=== PATIENT | female | born 1945 | race Caucasian/White ===

== ENCOUNTER 2022-05-04 10:30 | Outpatient (RCR) | payer MEDICARE, SELFPAY ==
--- NOTE | 2022-04-14 12:47 | PT.OPE ---
PT [place] [facility] PT [facility] Out[facility] Eval Start: 04/13/22 15:34 Freq: Status: Active Protocol: Document 04/13/22 16:21 LSL (Rec: 04/13/22 17:30 LSL [id number]) E-signed By Alysha Camacho PT Physical Therapy Outpatient Evaluation Insurance Information Insurance Name Medicare B,[facility] Insurance Information/Comments Medicare advantage Medical Diagnosis dorsalgia Treating Diagnosis pain, weakness, impaired ROM, impaired mobility Referring MD [facility] Subjective Subjective Pt began having pain a couple weeks ago without any injury, but could barely get out bed. I have been taking the muscle relaxers and pain pills she gave me last and it doesn't feel like they are helping. I am alternating between heat and ice depending on which one feels better at the time. Pt. c/o constant throbbing in her LB and it began radiating into my butt over the weekend. If I lay flat on my back in bed it feels pretty good but I have had to sleep in the recliner a couple nights, but the past couple days it is almost too soft and it feels better to be in a straight back chair. Standing up from sitting, bending forward increase her pain. Walking is a little slower but it doesn't make it worse. Once I get going into it, it almost feels better. 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 Pain Comments 08/14 best, 03/16 worst Date of Last Physician Visit 04/10/22 Current Work Status Retired Precautions Weight Bearing Status Full Weight Bearing Therapy Limitations/Systems Review Not Limited Objective Range of Motion AROM - flexion 50% with UE assistance, extension WNL with sharp pain, RLF 50% with pain , LLF 75% PROM - Strength LE - R HS 4-/5, B hip extension 3/5 with pain in LB R>L Trunk - upper abdominals can't due to pain, lower abdominals 2/5, bridge unable due to pain Swelling mild about L-S junction Palpation B lumbar paraspinals, multifidus, R glut med tight and tender, B piriformis, L3, L4 Posture Unremarkable Sensation/Reflexes Reflexes - B patellar intact, B achilles absent SLR - WNL with slight LBP on R SLR in sitting Other/Pertinent Objective Joint Play - PAs on L3, L4 and UPA L3, L4 all very tender, L5 UPA tender and restricted Assessment Assessment/Impression Pt. is a 76 y/o female with insidious onset of LBP. She appears to have symptoms of degenerative changes creating L5 nerve impingement. She is currently guarding movement without significant radicular symptoms, however she is very tight in the R glut med and has weakness in the R hamstrings. She will benefit from PT to educate patient in safe movement, and therex and NM re-ed to begin supporting and moving her spine again with manual therapy and modalities to assist in pain management. Primary Functional Limitations transitioning sit to/from stand, bending, lifting, bed mobility Plan of Care Rehabilitation Potential Excellent Physical Therapy Goals SHORT TERM GOALS: (2-3 weeks) 1. Pt. able to smoothly transition from one position to another with pain less than 3/10. 2. Pt. using proper lifting mechanics to decrease stress to her spine during this acute phase. 3. Pt. able to sleep in bed with pain less than 3/10. 4. Pt. able to don/doff socks and shoes, pants with pain less than 3/10. [facility]FP GOALS: (4+ weeks) 1. Pt. able to lift 10 pounds to get things in and out of oven. 2. Pt. able to perform design eng with pain less than 3/10. 3. Pt. able to sit on any surface with pain less than 3/ 10. 4. Pt. 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 Coordination/Communication With Referral Source Treatment Plan/Direct Interventions Electrical Stimulation,Heat, Ice/Cold/Vasopneumatic,Joint Mobilization,Manual Therapy, Neuromuscular Re-ed,Self-Care/ Home Management,Therapeutic Exercises Frequency/Duration 2x/week 4 weeks Patient Will Be Discharged From Therapy Completion of LTG(s),Skills Plateau,Independent w/HEP, Independently Progressing Evaluation Billing Untimed Code Treatment Minutes 25 Complexity Moderate Certification Information Initial Certification Date 04/13/22 Ending Certification Date 07/10/22 Provider Signature Shows Agreement With POC & Medical Necessity Physician Signature & Date Requested Please Sign/Date Here Physician Comment/Change : Physician NPI Number #
== END 2022-06-11 15:41 | disposition home or self-care (01) ==
PROVIDERS: PCP Physician Assistant Medical; Visit Provider Physician Assistant Medical
DX: M54.9 Dorsalgia, unspecified (principal); Z51.89 Encounter for other specified aftercare
CPT/HCPCS: 97110; 97140; 97162

== ENCOUNTER 2022-05-13 12:45 | Outpatient (CLI) | payer MEDICARE, SELFPAY ==
--- NOTE | 2022-05-13 13:00 | CRLHL7_ITS ---
For Patients: As a result of the Cures Act, medical imaging exams and procedure reports are released immediately into your electronic medical record. You may view this report before your referring provider. If you have questions, please contact your health care provider. BILATERAL SCREENING MAMMOGRAM WITH COMPUTER-AIDED DETECTION AND TOMOSYNTHESIS TECHNIQUE: CC and MLO views were obtained. These mammographic images have been obtained using full-field digital technique. These mammographic images were interpreted with the benefit of computer-aided detection. Breast Tomosynthesis was used in this interpretation. COMPARISON FILM: 09/13/17, 07/06/16, 03/21/15. FINDINGS: There are scattered areas of fibroglandular density IMPRESSION: There is no radiographic evidence for malignancy. ASSESSMENT: BI-RADS Category 1: Negative RECOMMENDATION: Routine screening mammogram in 1 year. A lay language report of this examination will be provided to the patient. Bartolome Castellanos M.D. Diagnostic Radiologist [email or web address] PHILLIP/lo be/Dictated by: Bartolome Castellanos MD @ 05/14/2022 9:48:00 AM (Electronically Signed)
--- NOTE | 2022-05-13 13:30 | CRLHL7_ITS ---
For Patients: As a result of the Century Cures Act, medical imaging exams and procedure reports are released immediately into your electronic medical record. You may view this report before your referring provider. If you have questions, please contact your health care provider. DXA BONE MINERAL DENSITY STUDY Current height (in): 61.0. Weight (lb): 160.0. Menopause age: 56. Ethnicity: White. Reason for exam: Postmenopausal. Screening. 1. Have you had a previous hip or vertebral fracture? No. 2. Have you had any fractures during your adult life which did not result from significant trauma (e.g., auto accident)? No. 3. Did either of your parents have a hip fracture? No. 4. Do you smoke? No. 5. Have you ever taken Glucocorticoids? No. 6. Do you have rheumatoid arthritis? No. 7. Do you have secondary osteoporosis? No. 8. Do you drink 3 or more alcoholic drinks per day? No. 9. Are you being treated for osteoporosis? No. 10. Have you ever taken any of the following medications: Actonel, Evista, Fosamax, Miacalcin, Reclast, Boniva, Forteo, HRT (i.e. estrogen/hormone therapy), Protelos, Prolia, Vitamin D, Calcium, other ??? please specify. ANSWER: Yes, calcium, vitamin D. 11. Do you have any of the following medical conditions: Anorexia or bulimia, asthma or emphysema, end stage renal disease, hyperparathyroidism, any seizure disorders, cancer, inflammatory bowel diseases, hysterectomy, other ??? please specify. ANSWER: No. 12. What was your maximum height (inches)? 61. 13. Do you perform weight bearing exercise regularly? No. 14. Do you regularly consume dairy products? Yes. 15. Do you drink caffeinated beverages? Yes. If female: 16. At what age did your period start? 13. 17. Are you premenopausal? No. 18. How many full term pregnancies have you had? 2. 19. Have you ever missed your period for more than 6 months in a row (not including or menopause)? No. TECHNIQUE: Bone mineral density study was performed using the [employer]. FINDINGS: The results of the study expressed as bone mineral density (BMD) are as follows: Lumbar spine L1 to L4: BMD: 1.034 g/cm2. T-score: -0.1. Z-score: 2.3. Neck Left: BMD: 0.660 g/cm2. T-score: -1.7. Z-score: 0.4. Right: BMD: 0.680 g/cm2. T-score: -1.5. Z-score: 0.6. Total Left: BMD: 0.761 g/cm2. T-score: -1.5. Z-score: 0.3. Right: BMD: 0.872 g/cm2. T-score: -0.6. Z-score: 1.2. IMPRESSION: Osteopenia. *Comparison exams done prior to 11/2019 were performed on different unit, [employer]. COMPARISON: Compared with scan of 11/30/2019, the bone mineral density has increased by 6.5 percent at the spine and increased by 6.5 percent at the hip. FRAX 10-year Fracture Risk Major Osteoporotic Fracture: 12 percent Hip Fracture: 2.6 percent Reported Risk Factors: [place] () Neck BMD = 0.660, BMI = 30.2 Bartolome Castellanos M.D. Diagnostic Radiologist [email or web address] Transcribed: 11:02 am DW/Dictated by: Bartolome Castellanos MD @ 05/14/2022 10:37:00 AM (Electronically Signed)
== END 2022-05-13 12:46 | disposition home or self-care (01) ==
PROVIDERS: PCP Physician Assistant Medical; Visit Provider Physician Assistant Medical
DX: Z12.31 Encounter for screening mammogram for malignant neoplasm of breast (principal); Z13.820 Encounter for screening for osteoporosis; M85.89 Other specified disorders of bone density and structure, multiple sites; Z78.0 Asymptomatic menopausal state
CPT/HCPCS: 77063; 77067; 77080

== ENCOUNTER 2022-10-22 14:03 | Outpatient (CLI) | payer MEDICARE, SELFPAY ==
[2022-10-22 22:33] LABS: TSH With Reflex to FT4* 0.913 uIU/mL (0.270-4.200)
== END 2022-10-22 14:04 | disposition home or self-care (01) ==
PROVIDERS: PCP Physician Assistant Medical; Visit Provider Physician Assistant Medical
DX: E04.2 Nontoxic multinodular goiter (principal); H04.123 Dry eye syndrome of bilateral lacrimal glands
CPT/HCPCS: 84443; 86235

== ENCOUNTER 2023-02-04 08:35 | Outpatient (CLI) | payer MEDICARE, SELFPAY | END 2023-02-04 08:36 | disposition home or self-care (01) | LOC: NFLDREF 02-05 07:21 | PROVIDERS: PCP Physician Assistant Medical; Referring Provider Physician Assistant Medical; Visit Provider Family Medicine | DX: E66.01 Morbid (severe) obesity due to excess calories (principal); H93.A2 Pulsatile tinnitus, left ear; Z13.6 Encounter for screening for cardiovascular disorders | CPT/HCPCS: 80053; 80061 ==

== ENCOUNTER 2023-04-08 13:45 | Outpatient (CLI) | payer MEDICARE, SELFPAY | END 2023-04-08 13:46 | disposition home or self-care (01) | LOC: NFLDREF 04-12 07:15 | PROVIDERS: PCP Physician Assistant Medical; Referring Provider Physician Assistant Medical; Visit Provider Physician Assistant Medical | DX: R35.0 Frequency of micturition (principal); N39.0 Urinary tract infection, site not specified; N30.00 Acute cystitis without hematuria | CPT/HCPCS: 87086; 87186 ==

== ENCOUNTER 2023-05-14 11:22 | Outpatient (REF) | payer MEDICARE, SELFPAY | END 2023-05-14 11:23 | disposition home or self-care (01) | LOC: NFLDREF 11:22 | PROVIDERS: PCP Physician Assistant Medical; Referring Provider Physician Assistant Medical; Visit Provider Internal Medicine Cardiovascular Disease | DX: I47.10 Supraventricular tachycardia, unspecified (principal) | CPT/HCPCS: 80048; 80061; 80076; 82550; 84443 ==

== ENCOUNTER 2023-09-09 07:55 | Outpatient (CLI) | payer MEDICARE, SELFPAY | END 2023-09-09 07:56 | disposition home or self-care (01) | LOC: NFLDREF 09-13 07:12 | PROVIDERS: PCP Physician Assistant Medical; Referring Provider Physician Assistant Medical; Visit Provider Internal Medicine Cardiovascular Disease | DX: R00.2 Palpitations (principal); Z13.220 Encounter for screening for lipoid disorders | CPT/HCPCS: 80061; 84450; 84460 ==

== ENCOUNTER 2023-12-14 13:42 | Outpatient (CLI) | payer MEDICARE, SELFPAY ==
--- NOTE | 2023-12-14 14:00 | CRLHL7_ITS ---
For Patients: As a result of the Cures Act, medical imaging exams and procedure reports are released immediately into your electronic medical record. You may view this report before your referring provider. If you have questions, please contact your health care provider. BILATERAL SCREENING MAMMOGRAM WITH COMPUTER-AIDED DETECTION AND TOMOSYNTHESIS TECHNIQUE: CC and MLO views were obtained. These mammographic images have been obtained using full-field digital technique. These mammographic images were interpreted with the benefit of computer-aided detection. Breast Tomosynthesis was used in this interpretation. COMPARISON FILM: 05/13/22, 09/13/17, 07/06/16. FINDINGS: There are scattered areas of fibroglandular density IMPRESSION: There is no radiographic evidence for malignancy. ASSESSMENT: BI-RADS Category 1: Negative RECOMMENDATION: Routine screening mammogram in 1 year. A lay language report of this examination will be provided to the patient. PORSHA CRANE M.D. Diagnostic/Nuclear Medicine Radiologist [email or web address] ANÍBAL:ap Transcribed: 1:45 p.mBc de souza/Dictated by: Porsha Crane MD @ 12/16/2023 9:57:00 AM (Electronically Signed)
== END 2023-12-14 13:43 | disposition home or self-care (01) ==
LOC: MAMMO 13:43
PROVIDERS: PCP Physician Assistant Medical; Visit Provider Physician Assistant Medical
DX: Z12.31 Encounter for screening mammogram for malignant neoplasm of breast (principal)
CPT/HCPCS: 77063; 77067

== ENCOUNTER 2024-08-28 14:28 | Outpatient (CLI) | payer MEDICARE, SELFPAY | END 2024-08-28 14:29 | disposition home or self-care (01) | LOC: NFLDREF 08-29 10:25 | PROVIDERS: PCP Physician Assistant Medical; Referring Provider Physician Assistant Medical; Visit Provider Physician Assistant Medical | DX: N30.00 Acute cystitis without hematuria (principal) | CPT/HCPCS: 87086 ==

== ENCOUNTER 2024-10-09 07:47 | Outpatient (CLI) | payer MEDICARE, SELFPAY | END 2024-10-09 07:48 | disposition home or self-care (01) | LOC: NFLDREF 10-12 19:10 | PROVIDERS: PCP Physician Assistant Medical; Referring Provider Physician Assistant Medical; Visit Provider Physician Assistant Medical | DX: Z00.00 Encounter for general adult medical examination without abnormal findings (principal); E78.5 Hyperlipidemia, unspecified; E66.9 Obesity, unspecified; F41.9 Anxiety disorder, unspecified; I47.10 Supraventricular tachycardia, unspecified; I48.91 Unspecified atrial fibrillation; M85.80 Other specified disorders of bone density and structure, unspecified site | CPT/HCPCS: 80053; 80061; 84443 ==

== ENCOUNTER 2025-03-14 13:34 | Outpatient (CLI) | payer MEDICARE, SELFPAY ==
--- NOTE | 2025-03-14 14:00 | CRLHL7_ITS ---
For Patients: As a result of the Century Cures Act, medical imaging exams and procedure reports are released immediately into your electronic medical record. You may view this report before your referring provider. If you have questions, please contact your health care provider. INDICATION: BILATERAL SCREENING MAMMOGRAM, ASYMPTOMATIC 79 Y/O FEMALE COMPARISON: 12/14/2023, 05/13/2022, 09/13/2017 TECHNIQUE: Digital mammogram in CC and MLO projections including computer-aided detection (CAD) and tomosynthesis. BREAST COMPOSITION: There are scattered areas of fibroglandular density. FINDINGS: No suspicious findings. ASSESSMENT: BI-RADS 1 Negative RECOMMENDATION: Annual screening mammogram. A lay language report of this examination will be provided to the patient. Dictated by: Bartolome Castellanos MD @ 03/15/2025 08:47:32 (Electronically Signed)
--- NOTE | 2025-03-14 14:30 | CRLHL7_ITS ---
For Patients: As a result of the Century Cures Act, medical imaging exams and procedure reports are released immediately into your electronic medical record. You may view this report before your referring provider. If you have questions, please contact your health care provider. XR DXA Bone Mineral Density (BMD) Reason for exam: Other specified disorders of bone density. Current height (inches): 61.0 Weight (lbs.): 168.0 Menopause age: 56 Ethnicity: White 1. Have you had a previous hip or vertebral fracture? No. 2. Have you had any fractures during your adult life which did not result from significant trauma (e.g., auto accident)? No. 3. Did either of your parents have a hip fracture? No. 4. Do you smoke? No. 5. Have you ever taken Glucocorticoids? No. 6. Do you have rheumatoid arthritis? No. 7. Do you have secondary osteoporosis? No. 8. Do you drink 3 or more alcoholic drinks per day? No. 9. Are you being treated for osteoporosis? No. 10. Have you ever taken any of the following medications: Actonel, Evista, Fosamax, Miacalcin, Reclast, Boniva, Forteo, HRT (i.e., estrogen/hormone therapy), Protelos, Prolia, Vitamin D, Calcium, other ??? please specify. ANSWER: Yes; vitamin D and calcium. 11. Do you have any of the following medical conditions: Anorexia or bulimia, asthma or emphysema, end stage renal disease, hyperparathyroidism, any seizure disorders, cancer, inflammatory bowel diseases, hysterectomy, other ??? please specify. ANSWER: No. 12. What was your maximum height (inches)? 61. 13. Do you perform weightbearing exercise regularly? No. 14. Do you regularly consume dairy products? Yes. 15. Do you drink caffeinated beverages? Yes. 16. At what age did your period start? 13. 17. Are you premenopausal? No. 18. How many full-term pregnancies have you had? 2. 19. Have you ever missed your period for more than 6 months in a row (not including or menopause)? No. TECHNIQUE: Bone mineral density study was performed using the [employer]. FINDINGS: The results of the study expressed as bone mineral density (BMD) are as follows: Lumbar Spine L1 to L4: BMD: 1.001 g/cm2. T-score: -0.4. Z-score: 2.2. Neck Left: BMD: 0.642 g/cm2. T-score: -1.9. Z-score: 0.4. Right: BMD: 0.698 g/cm2. T-score: -1.4. Z-score: 0.9. Total Left: BMD: 0.760 g/cm2. T-score: -1.5. Z-score: 0.5. Right: BMD: 0.904 g/cm2. T-score: -0.3. Z-score: 1.6. IMPRESSION: Osteopenia. COMPARISON: Compared with scan of 05/13/2022, the bone mineral density has decreased by 3.1% at the spine and increased by 1.9% at the hip. Compared with scan of 11/30/2019, the bone mineral density has increased by 6.5% at the spine and increased 6.5% at the hip. *Comparison exams done prior to 11/2019 were performed on different unit, [employer]. FRAX 10-year Fracture Risk Major Osteoporotic Fracture: 13% Hip Fracture: 3.4% Reported Risk Factors: [place] () Neck BMD = 0.642, BMI = 31.7. BARTOLOME CASAREZ M.D. Diagnostic Radiologist [email or web address] Transcribed: 1:[address]/Dictated by: Bartolome Casarez MD @ 03/15/2025 10:08:00 AM (Electronically Signed)
== END 2025-03-14 13:35 | disposition home or self-care (01) ==
LOC: MAMMO 13:35
PROVIDERS: PCP Physician Assistant Medical; Visit Provider Physician Assistant Medical
DX: Z12.31 Encounter for screening mammogram for malignant neoplasm of breast (principal); M85.80 Other specified disorders of bone density and structure, unspecified site; M85.89 Other specified disorders of bone density and structure, multiple sites
CPT/HCPCS: 77063; 77067; 77080